=== PATIENT | female | born 1980 ===

== ENCOUNTER 2024-10-10 10:24 | Outpatient (REF) | payer BC, SELFPAY ==
--- NOTE | 2024-10-10 10:30 | PAPFT_PTH ---
PATIENT: Katy Beltran LOC: [facility] U#:[id number] AGE/SX: 44/F ROOM: RE10/10/[address]: Jaimee Morales DO : 1980 BED: DIS: 10/10/2024 SPEC #: [id number] RECD: 10/10/24 17:45 STATUS: SOUT REQ #: [id number] CEFERINO: 10/10/24 10:[address]: Jaimee Morales DEPT: [facility], [facility] Cytology RECD BY: Kira Santiago ENTERED: 10/10/24 17:46 SP TYPE: PAPFT OTHR DR: Unknown,Unknown Tissues: 1 - CX/ENDOCX FOR PAP SMEARS Procedures: PAP THIN PREP/[facility] Screening HPV DNA PROBE Comments: [id number] (HPV 16 & 18/45)
== END 2024-10-10 10:25 | disposition home or self-care (01) ==
LOC: LBN 10:24
PROVIDERS: Visit Provider Obstetrics & Gynecology
DX: Z11.51 Encounter for screening for human papillomavirus (HPV) (principal); Z01.419 Encounter for gynecological examination (general) (routine) without abnormal findings; B37.31 Acute candidiasis of vulva and vagina
CPT/HCPCS: 88142; 87624

== ENCOUNTER 2024-10-14 00:34 | Outpatient (CLI) | payer BC, SELFPAY ==
--- NOTE | 2024-10-14 06:45 | DI.MAMMO_ITS ---
Exam(s) MG MAMMO SCREENING 60 MIN DUR EXAM: MG MAMMO SCREENING 60 MIN DUR CLINICAL HISTORY: breast cancer screening,implants. TECHNIQUE: Bilateral full field digital CC and MLO mammographic images were obtained with 3D tomosyn thesis and utilizing computer aided detection (CAD). COMPARISON: None. This is a baseline mammogram on this 44-year-old patient. FINDINGS: There are bilateral retropectoral saline implants which appear intact There are no spiculated masses nor malignant appearing microcalcification groups. There is no significant architectural distortion nor skin thickening-retraction. IMPRESSION: No radiographic evidence of malignancy. Intact retropectoral saline implants BI-RADS Category 1 - Negative Breast Density - Category B - There are scattered areas of fibroglandular density. Breast density Category C or D implies that the patient has dense breast tissue. Dense breast tissue can make it harder to find cancer on a mammogram. Dense breast tissue is also associated with an incr eased risk of breast cancer. This information about the result of the mammogram report was provided to the patient to raise their awareness. Use this report when you speak with the patient about their risks for breast cancer, which includes their family history. At that time, you may recommend additional screening tests (Ultrasoun d or MRI) as these tests may add significant information. A negative radiographic report should not delay biopsy if a dominant or clinically suspicious mass is present. Up to ten percent of cancers are not identified on mammography. A negative report may reinforce clinical impression. Adenosis and dense breasts may obscure an underlying neoplasm. False positive reports average 6 to 10%. Patient will receive a letter notifying them of these results.
== END 2024-10-14 00:54 ==
LOC: DI 00:34
PROVIDERS: Visit Provider Obstetrics & Gynecology
DX: Z12.31 Encounter for screening mammogram for malignant neoplasm of breast (principal); R92.323 Mammographic fibroglandular density, bilateral breasts
CPT/HCPCS: 77063; 77067